=== PATIENT | female | born 1985 | race Caucasian/White ===

== ENCOUNTER 2019-08-27 22:55 | Emergency (ER) | payer MEDICAID ==
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
[2019-08-28] MEDS ORDERED: INSULIN REGULAR HUMAN 100 UNIT/1 ML 10 ML MDV SUBQ STA (00:04)
[2019-08-28 00:46] VITALS: BP 126/82
== END 2019-08-28 00:46 | disposition home or self-care (01) ==
LOC: ED 22:55
DX: E10.9 Type 1 diabetes mellitus without complications (principal)
CPT/HCPCS: 99284; J1815